=== PATIENT | male | born 1995 | race Caucasian/White ===

== ENCOUNTER 2016-12-01 17:31 | Emergency (ER) | payer SELFPAY ==
[~2016-12-01] VITALS: Ht 180.3 cm; Wt 65.8 kg
[2016-12-01 17:31] VITALS: BP_SYST 125
[2016-12-01] MEDS ORDERED: IBUPROFEN 800 MG TABLET PO ONE (18:00)
== END 2016-12-01 18:54 | disposition home or self-care (01) ==
LOC: SED 17:31
DX: S20.20XA Contusion of thorax, unspecified, initial encounter (principal); S00.83XA Contusion of other part of head, initial encounter; X58.XXXA Exposure to other specified factors, initial encounter; Y93.89 Activity, other specified; Y92.89 Other specified places as the place of occurrence of the external cause; Y99.8 Other external cause status
CPT/HCPCS: 70486-TC; 71100; 99284